=== PATIENT | male | born 1960 | race Caucasian/White ===

== ENCOUNTER → 2017-08-08 | Outpatient (CLI) | payer BC ==
[~2017-08-08] MED LIST: AMLO-110 PO; CHEMO IV; FRS/40 PO; IBUP-1050 PO; METO100T44 PO; MULT-884 PO; [UNRECOGNIZED DRUG - CODE] SQ
--- NOTE | 2017-08-08 14:39 | DIAGNOSTIC IMAGING REPORT ---
CHEST 2 VIEWS ROUTINE CLINICAL HISTORY: COUGH COMPARISON STUDY: 11/27/2015 FINDINGS: The heart is borderline enlarged. There is no failure. There is no focal pulmonary consolidation. There are no pleural effusions. Slight interstitial prominence is felt to be related to technical factors given the patient's large body habitus.[ IMPRESSION: No active disease in the chest. Electronically signed by: Jaspreet Rios M.D. 08/08/2017 2:38 PM Dictated Date/Time: 08/08/2017 2:37 PM
[2017-08-08 17:17] LABS: ALBUMIN 3.4 gm/dl (3.4-5.0); ALT/SGPT 35 U/L (12-78); AST/SGOT 40 U/L (15-37); BLOOD UREA NITROGEN 17 mg/dl (7-18); CALCIUM 9.1 mg/dl (8.5-10.1); CARBON DIOXIDE 28 mmol/L (21-32); CREATININE 1.01 mg/dl (0.60-1.40); GLUCOSE 74 mg/dl (70-99); SODIUM 140 mmol/L (136-145)
[2017-08-08 17:27] LABS: ALKALINE PHOSPHATASE 82 U/L (45-117); TOTAL PROTEIN 7.4 gm/dl (6.4-8.2)
== END | disposition home or self-care (01) ==
LOC: C.RADBC 14:22
PROVIDERS: ATTEND Internal Medicine Geriatric Medicine
DX: C83.10 Mantle cell lymphoma, unspecified site (principal); R05 Cough; M79.1 Myalgia; Z68.43 Body mass index [BMI] 50.0-59.9, adult